=== PATIENT | female | born 1950 | race Caucasian/White ===

== ENCOUNTER → 2018-11-27 | Outpatient (CLI) | payer MEDICARE, BC ==
--- NOTE | 2018-11-27 16:24 | US ---
EXAMINATION TYPE: US venous doppler duplex LE RT DATE OF EXAM: 11/27/2018 4:12 PM COMPARISON: NONE CLINICAL HISTORY: M79.604 Pain in right leg, R22.40 Localized. Edema right lower leg and foot for 2 weeks SIDE PERFORMED: right TECHNIQUE: The lower extremity deep venous system is examined utilizing real time linear array sonog tylor with graded compression, doppler sonography and color-flow sonography. VESSELS IMAGED: External Iliac Vein (EIV) Common Femoral Vein Deep Femoral Vein Greater Saphenous Vein * Femoral Vein Popliteal Vein Small Saphenous Vein * Proximal Calf Veins (* superficial vessels) Right Leg: No evidence of DVT IMPRESSION: Grayscale, color doppler, spectral doppler imaging performed of the deep veins of the [facility] lower extremity. There is normal flow, compressibility, vascular waveforms.
== END | disposition home or self-care (01) ==
LOC: RADUSWWP 15:54
PROVIDERS: ATTEND Family Medicine
DX: M79.604 Pain in right leg (principal); R22.41 Localized swelling, mass and lump, right lower limb

== ENCOUNTER → 2018-12-12 | Outpatient (CLI) | payer MEDICARE, BC ==
[2018-12-12 16:39] LABS: HCT 37.5 % (34.0-46.0); HGB 12.2 gm/dL (11.4-16.0); MCH 30.7 pg (25.0-35.0); MCHC 32.6 g/dL (31.0-37.0); MCV 94.2 fL (80.0-100.0); Mean Platelet Volume 6.8; Platelet Count 323 k/uL (150-450); RBC 3.98 m/uL (3.80-5.40); RDW 12.4 % (11.5-15.5); WBC 7.2 k/uL (3.8-10.6)
[2018-12-12 19:40] LABS: Erythrocyte Sedimentation Rate 71 mm/hr (0-20)
[2018-12-13 00:09] LABS: C Reactive Protein 2.3 mg/dL (0.0-0.8)
[2018-12-13 00:13] LABS: Rheumatoid Factor 5 IU/mL (0-15); Streptolysin O Ab(ASO) 111 IU/mL (0-200)
[2018-12-13 09:28] LABS: ANA Pattern See Footnote
[2018-12-13 12:12] LABS: HLA B27 NEGATIVE
[2018-12-13 14:05] LABS: Lyme IgG/IgM 0.23 Index; Lyme IgG/IgM Interp NEGATIVE (NEGATIVE)
== END | disposition home or self-care (01) ==
LOC: LABWHC1 16:17
PROVIDERS: ATTEND Orthopaedic Surgery
DX: M79.671 Pain in right foot (principal); R60.9 Edema, unspecified; M79.672 Pain in left foot
CPT/HCPCS: 36415; 83520; 84443; 85027; 85652; 86038; 86039; 86060; 86140; 86431; 86618; 86812